=== PATIENT | male | born 1990 | race African-American/Black ===

== ENCOUNTER 2018-01-31 00:30 | Emergency (ER) | payer OTHER ==
[~2018-01-31] VITALS: Ht 185.4 cm; Wt 52.6 kg
[2018-01-31 00:39] VITALS: BP 128/76
[2018-01-31] MEDS: IBUPROFEN 400 MG TABLET PO ONE (00:54)
[2018-01-31] MEDS ORDERED: IBUPROFEN 600 MG TABLET PO ONE (00:54)
[2018-01-31] MEDS ORDERED: IBUPROFEN 400 MG TABLET ONE (01:07)
== END 2018-01-31 01:53 | disposition home or self-care (01) ==
LOC: ER 00:35
DX: M62.838 Other muscle spasm (principal); F12.10 Cannabis abuse, uncomplicated; G89.29 Other chronic pain; M54.2 Cervicalgia; F17.200 Nicotine dependence, unspecified, uncomplicated; Y04.2XXA Assault by strike against or bumped into by another person, initial encounter; Y93.89 Activity, other specified; Y92.89 Other specified places as the place of occurrence of the external cause; Y99.8 Other external cause status
CPT/HCPCS: 99283; A4606; Z7610